=== PATIENT | male | born 2000 ===

== ENCOUNTER 2021-03-13 06:03 | Observation (INO) ==
[2021-03-13] MEDS ORDERED: Morphine 10 MG/ML VIAL (1 ml) IM ONE (06:23)
[2021-03-13] MEDS ORDERED: Morphine 4 MG/ML VIAL (1 ml) IV ONE (06:37)
[2021-03-13] MEDS ORDERED: HYDROmorphone 1 MG/1 ML SYRINGE IV ONE (06:55)
[2021-03-13] MEDS ORDERED: HYDROmorphone 1 MG/1 ML SYRINGE IV SLOW PU ONE (07:37)
[2021-03-13] MEDS ORDERED: Lorazepam PYXIS KEY PRN (09:39)
[2021-03-13] MEDS ORDERED: LORazepam 2 mg VIAL 1 ml IV PUSH ONE (09:39)
[2021-03-13] MEDS ORDERED: oxyCODONE/Acetamin 5/325 mg TAB PO PRN (09:40)
[2021-03-13] MEDS ORDERED: Ondansetron 4 mg VIAL 2 MG/ML 2 ml VIAL IV PRN (09:40)
[2021-03-13] MEDS ORDERED: diPHENhydraMINE IV 50 MG/ML 1 ml VIAL (BENADRYL) IV PRN (09:40)
[2021-03-13] MEDS: Pantoprazole VIAL 40 MG VIAL IV SCH (11:44)
[2021-03-13 12:41] LABS: ABS Eosinophils 0.1 10^3/ul (0-0.6); ABS Lymphocytes 2.4 10^3/ul (1.0-4.8); ABS Monocytes 0.4 10^3/ul (0-0.8); ABS Neutrophils 2.6 10^3/ul (1.5-7.7); Eosinophil % 1.2 %; Hematocrit 38 % (42-52); Hemoglobin 12.7 g/dL (14.0-18.0); Lymphocyte % 43.5 %; Mean Corpuscular HGB Conc 33 g/dL (31-36); Mean Corpuscular Hemoglobin 27 pg (27-31); Mean Corpuscular Volume 81 fL (80-94); Mean Platelet Volume 7.4 fL (7.4-10.4); Nucleated Red Blood Cells % 0.2; Platelet Count 298 10^3/uL (150-450); Red Blood Count 4.69 10^6 /uL (4.18-5.48); Red Cell Distribution Width 17 % (10-15); White Blood Count 5.6 10^3/uL (3.5-10.8)
[2021-03-13 12:48] LABS: C Reactive Protein 9.68 mg/L (<8.01); Calcium 9.5 mg/dL (8.6-10.3); EGFR African American 99.1 (>60); EGFR Non-African American 81.9 (>60); Potassium 3.4 mmol/L (3.5-5.0)
[2021-03-13] MEDS: NS 0.9% 1000 ml BAG 1,000 ML IV SCH ×2 (13:11→22:52)
[2021-03-14 07:37] VITALS: BP 138/76
[2021-03-14] MEDS ORDERED: Senna TAB 8.6 mg TAB PO ONE (08:30)
[2021-03-14] MEDS ORDERED: Magnesium Hydroxide LIQ 30 ML UDC PO ONE (08:30)
[2021-03-14] MEDS: Pantoprazole VIAL 40 MG VIAL IV SCH (08:50)
== END 2021-03-14 11:20 | disposition home or self-care (01) ==
LOC: SSU 06:03 → ED 06:03
PROVIDERS: ADMIT Orthopaedic Surgery; ATTEND Orthopaedic Surgery